=== PATIENT | male | born 1970 | race Caucasian/White ===

== ENCOUNTER → 2021-03-15 | Outpatient (CLI) | payer OTHER ==
[~2021-03-15] MED LIST: ACET325T9 PO; CETI10TA74 PO; CEVI30CA PO; DOXE10CA PO; GUAI600T47 PO; MELA3TAB4 PO; PANT20TA2 PO; TAMS0.4C97 PO; VENL150C PO
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
== END ==
LOC: PNCL 07:57 → EEVIPCON 08:00
PROVIDERS: ATTEND Anesthesiology
DX: M79.662 Pain in left lower leg (principal); M79.661 Pain in right lower leg; M54.2 Cervicalgia; Z92.21 Personal history of antineoplastic chemotherapy; Z92.3 Personal history of irradiation; Z98.890 Other specified postprocedural states
CPT/HCPCS: 99205; G0463

== ENCOUNTER → 2021-05-16 | Outpatient (CLI) | payer OTHER ==
--- NOTE | 2021-05-16 16:29 | KCIC ---
EXAM: Cervical spine MRI without contrast. HISTORY: Radiculopathy. TECHNIQUE: Multiplanar, multisequence magnetic resonance imaging of the cervical spine was performed without contrast. COMPARISON: None. FINDINGS: There is slight retrolisthesis of C3 on C4. There is no suspicious osseous lesion. There is no fracture. No spinal cord lesion is seen. The skull base and posterior fossa are unremarkable. At C2-C3, there is mild bilateral facet arthropathy. There is no stenosis. At C3-C4, there is endplate remodeling. There is mild bilateral facet arthropathy. There is minimal l eft foraminal stenosis. At C4-C5, there is endplate remodeling. There is mild bilateral facet arthropathy. There is minimal l eft foraminal stenosis. At C5-C6, there is mild left facet arthropathy. There is no stenosis. At C6-C7, there is no stenosis. IMPRESSION: Minimal degenerative change involving the cervical spine, described in detail above. This results in minimal left foraminal stenosis at C3-C4 and C4-C5. Electronically signed by: Kristina Waterman MD (05/16/2021 4:26 PM) [id number]
== END | disposition home or self-care (01) ==
LOC: KCIC MRI 13:36
PROVIDERS: ATTEND Anesthesiology
DX: M47.22 Other spondylosis with radiculopathy, cervical region (principal); M48.02 Spinal stenosis, cervical region; Z79.899 Other long term (current) drug therapy
CPT/HCPCS: 72141